=== PATIENT | female | born 1955 | race Caucasian/White ===

== ENCOUNTER → 2017-01-30 | Outpatient (CLI) | payer BC ==
[~2017-01-30] MED LIST: ASPI81TA28 PO; GADAVIST IV PRN; LPT10 PO; LSN5 PO; MULT-506 PO; NTRSLP4 SL; TPRSR25 PO
--- NOTE | 2017-01-31 07:25 | MAMMOGRAPHY REPORT ---
BREAST MRI OF BOTH BREASTS : 01/30/2017 CLINICAL HISTORY: 61-year-old woman with a personal history of left breast DCIS. She is status post s urgical excision of the biopsy proven DCIS as well as another area of clustered microcalcifications i n the superior left breast. Per the pathology report, the needle localized partial mastectomy yielde d no residual ductal carcinoma in situ, but evidence of prior biopsy site with associated fat necrosi s. The cluster of calcifications in the superior breast yielded fibrocystic change. Patient present s for MRI evaluation of both breasts. COMPARISON: Prior mammograms dated 11/01/2016 and 11/04/2016, stereotactic biopsies dated 11/04/2016, ultrasound performed 11/10/2016 and needle localization/surgical specimen radiograph dated 7. TECHNIQUE: Using a 1.5 Lyla magnet and dedicated breast coil, multisequence axial images were obtain ed through the breasts. After uneventful IV administration of 7 mL of Gadavist, dynamic multiphase c ontrast-enhanced axial images, and sagittal postcontrast were obtained. Temporal subtraction axial i mages and 3-D MIP images are provided. Everything was then reviewed on a 3-D workstation, [employer]. FINDINGS: Right breast: There is no significant background parenchymal enhancement. No suspicious mass, non-ma ss enhancement, architectural distortion or suspicious kinetics identified in the right breast. No f ocal skin thickening or nipple retraction. No suspicious right axillary adenopathy. Left breast: There is V-shaped architectural distortion in the left breast correlating to the areas o f prior surgery. The surgical scar begins in the lower outer middle one third of the breast extendin g superior and posteriorly towards a small 2 cm ovoid postsurgical seroma and/or hematoma located in the posterior retroareolar breast, and the scar then extends anterior superiorly into the upper outer quadrant of the left breast. There is mild enhancement along the surgical scar, most prominent surr ounding the postsurgical seroma and/or hematoma. This most likely represents post surgical change, a s pathology margins were negative. However, there is a focal area of non-mass enhancement more anter iorly within the left breast, approximate 12:00 anterior breast, 4 cm distal to the nipple (sagittal page 27 and axial page 54) measuring 17 x 6 mm, and associated persistent kinetics. This non-mass en hancement is located 9.2 cm anterior to the postsurgical seroma/hematoma. It is suspicious for addit ional DCIS and definitive characterization with tissue sampling is recommended. Review of mammograms from 11/01/2016 demonstrates very faint punctate and amorphous macrocalcifications in the anterior l eft breast, but spot magnification views are not available for full assessment. Would prefer MRI nataliia ded biopsy to ensure adequate sampling of the non-mass enhancement. There is an ovoid area of mass v ersus non-mass enhancement in the far posterior 12:00 left breast (axial page 47/116, sagittal page 2 6/128), measuring 7 x 4 x 10 mm. Targeted second look ultrasound with possible ultrasound-guided cor e biopsy is recommended. No other suspicious mass or non-mass enhancement is seen in the left breast . There is skin irregularity in the area of prior surgery. No focal area of skin thickening. The r etromammary fat is intact. No suspicious axillary adenopathy is identified bilaterally. IMPRESSION: ACR BI-RADS CATEGORY 4: SUSPICIOUS 1. Postsurgical changes in the left breast from recent partial mastectomy and excisional biopsy. 2. Focal 17 x 6 mm non-mass enhancement in the 12:00 anterior left breast, 9.2 cm anterior to the mo st posterior aspect of the surgical site, that could represent additional DCIS. Definitive character ization with an MRI guided biopsy is recommended. 3. Ovoid mass versus non-mass enhancement measuring 10 mm in the 12:00 far posterior left breast for which targeted second look ultrasound and possible ultrasound-guided core biopsy is recommended (thi s could be performed following the MRI guided biopsy). 4. No MRI evidence of malignancy in the right breast. 5. No suspicious axillary adenopathy bilaterally. The patient will be called to schedule an appointment. Rajni Cleveland M.D. ay/:01/30/2017 21:49:20 Rn Procedures: unindentured apprentice, [facility] letter sent: Abnormal 4/5 BI-RADS Code: ACR BI-RADS Category 4: Suspicious
== END | disposition home or self-care (01) ==
LOC: C.MRI 06:31
PROVIDERS: ATTEND Surgery
DX: D05.12 Intraductal carcinoma in situ of left breast (principal)

== ENCOUNTER → 2017-02-08 | Outpatient (CLI) | payer BC ==
[~2017-02-08] MED LIST changes: -GADAVIST IV PRN
--- NOTE | 2017-02-09 07:52 | MAMMOGRAPHY REPORT ---
SECONDLOOK ULTRASOUND OF LEFT BREAST: 02/08/2017 CLINICAL HISTORY: Focal 10 mm area of enhancement in the left 12:00 posterior breast on recent breast MRI, for which second look ultrasound was recommended. COMPARISON: Comparison is made to exams dated: 02/08/2017 MRI biopsy, 01/30/2017 breast MRI - [facility], 12/01/2016 mammogram, 11/04/2016 stereotactic biopsy, 11/04/2016 mammogram, and 11/01 mammogram. TECHNIQUE: Real-time targeted ultrasound of the left breast was performed. FINDINGS: Real-time, high resolution targeted ultrasound was performed of the left 12:00 posterior b reast in the region of the enhancement seen on the breast MRI. There are scattered echogenic foci wi th posterior acoustic shadowing within the left 12:00 breast, centered around 2 cm from the nipple, c onsistent with postbiopsy changes including air from MRI guided core needle biopsy performed earlier today. The posterior shadowing obscures evaluation of the posterior tissue in this region. However, within the limitations of the exam, there is no suspicious mass or other suspicious sonographic abno rmality. No clear sonographic correlate is seen for the focal MRI enhancement. IMPRESSION: ACR-BI-RADS CATEGORY 3: PROBABLY BENIGN - FOLLOW-UP RECOMMENDED No clear sonographic correlate for the focal area of enhancement in the left 12:00 posterior breast s een on recent breast MRI. The enhancement is probably benign and likely represents normal fibrogland ular tissue. Pending benign pathology results from the MRI guided left breast biopsy, recommend foll ow-up bilateral breast MRI in 6 months to confirm stability. The patient was verbally notified of the results. Di Jerome M.D. ah/:02/08/2017 12:57:30 Truss Maker: Juju BLAKE(R)(M), [facility] BI-RADS Code: ACR-BI-RADS Category 3: Probably Benign
== END | disposition home or self-care (01) ==
LOC: C.MAMM 12:29
PROVIDERS: ATTEND Surgery
DX: R92.8 Other abnormal and inconclusive findings on diagnostic imaging of breast (principal)